=== PATIENT | male | born 1995 | race Caucasian/White ===

== ENCOUNTER 2021-07-07 21:05 | Emergency (ER) | payer SELFPAY ==
[~2021-07-07] VITALS: Ht 182.9 cm; Wt 81.6 kg
[2021-07-07 21:05] VITALS: BP 110/61
== END 2021-07-08 00:12 | disposition left against medical advice (07) ==
LOC: ER 21:07
DX: R51.9 Headache, unspecified (principal); R21 Rash and other nonspecific skin eruption; Z53.21 Procedure and treatment not carried out due to patient leaving prior to being seen by health care provider